=== PATIENT | female | born 1960 | race Caucasian/White ===

== ENCOUNTER → 2016-07-14 | Outpatient (CLI) | payer OTHER ==
[~2016-07-14] MED LIST: CHOL200024 PO; CYAN100028 PO; CYCL-259 PO; DIPH25CA61 PO; INUL1TAB4 PO; LEVO50TA5 PO; LORA2TAB PO; MAGN400T7 PO; MIRT45TA4 PO; PRAZ2CAP2 PO; TRAM50TA2 PO; ZOLP10TA5 PO
== END | disposition home or self-care (01) ==
LOC: STAR 08:34
PROVIDERS: ATTEND Surgery
DX: Z02.9 Encounter for administrative examinations, unspecified (principal)

== ENCOUNTER 2016-07-21 08:46 | Day surgery (SDC) | payer OTHER ==
[~2016-07-21] VITALS: Ht 157.5 cm; Wt 44.0 kg
[2016-07-21] MEDS ORDERED: FENTANYL PF 250 MCG/5ML ONE (13:27)
[2016-07-21] MEDS ORDERED: MIDAZOLAM 1 MG/ML, 2ML ONE ×2 (13:27→15:04)
[2016-07-21] MEDS ORDERED: ONDANSETRON 2MG/ML, 2ML ONE (14:20)
[2016-07-21] MEDS ORDERED: GLYCOPYRROLATE 0.2MG/1ML ONE (14:20)
[2016-07-21] MEDS ORDERED: KETOROLAC 30 MG/1 ML ONE (14:20)
[2016-07-21] MEDS ORDERED: PROPOFOL 10 MG/ML, 20ML ONE (14:20)
[2016-07-21] MEDS ORDERED: DEXAMETHASONE 4 MG/ML, 1ML ONE (14:20)
[2016-07-21] MEDS ORDERED: NEOSTIGMINE 1 MG/ML, 10ML ONE (14:20)
[2016-07-21] MEDS ORDERED: ROCURONIUM 10 MG/ML ONE (14:20)
[2016-07-21] MEDS ORDERED: CEFAZOLIN 1,000 MG ONE (14:20)
[2016-07-21] MEDS ORDERED: BUPIVACAINE/PF-EPI 0.25% 1:200K INFIL ONE (14:41)
[2016-07-21] MEDS: FENTANYL PF 100 MCG/2ML IV PRN ×2 (15:03→15:21)
[2016-07-21] MEDS ORDERED: FENTANYL PF 100 MCG/2ML ONE (15:04)
[2016-07-21] MEDS ORDERED: HYDROmorphone 1 MG/ML, 1ML ONE (15:04)
[2016-07-21] MEDS ORDERED: OXYcodone 5 MG/5 ML ORAL.SOL UDC ONE (15:05)
[2016-07-21] MEDS ORDERED: HYDROmorphone 1 MG/ML, 1ML IV PRN (15:30)
[2016-07-21] MEDS ORDERED: OXYcodone 5 MG/5 ML ORAL.SOL UDC PO PRN (15:30)
[2016-07-21] MEDS ORDERED: LABETALOL 5MG/ML, 20ML IV PRN (15:30)
[2016-07-21] MEDS ORDERED: MEPERIDINE/PF 25MG/0.5ML IVPush PRN (15:30)
[2016-07-21] MEDS ORDERED: ALBUTEROL/IPRATROPIUM 2.5MG/0.5MG, 3 ML NPPB PRN (15:30)
[2016-07-21] MEDS ORDERED: MIDAZOLAM 1 MG/ML, 2ML IV PRN (15:30)
[2016-07-21] MEDS ORDERED: hydrALAzine 20 MG/ML, 1ML IV PRN (15:30)
[2016-07-21] MEDS ORDERED: ONDANSETRON 2MG/ML, 2ML IVPush PRN (15:30)
[2016-07-21] MEDS ORDERED: ACETAMINOPHEN 325 MG TABLET PO PRN (15:30)
[2016-07-21] MEDS ORDERED: PROMETHAZINE 25 MG/ML, 1ML IV PRN (15:30)
[2016-07-21] MEDS ORDERED: LACTATED RINGERS 1,000 ML IV SCH (19:46)
== END 2016-07-21 19:20 | disposition home or self-care (01) ==
LOC: OUT 08:46
PROVIDERS: ATTEND Surgery
DX: K81.1 Chronic cholecystitis (principal); E03.9 Hypothyroidism, unspecified; M41.9 Scoliosis, unspecified; Z98.51 Tubal ligation status; Z98.890 Other specified postprocedural states; G43.909 Migraine, unspecified, not intractable, without status migrainosus; M48.02 Spinal stenosis, cervical region; Z86.19 Personal history of other infectious and parasitic diseases; Z87.891 Personal history of nicotine dependence; Z91.041 Radiographic dye allergy status; Z72.89 Other problems related to lifestyle; Z82.0 Family history of epilepsy and other diseases of the nervous system; Z83.3 Family history of diabetes mellitus; Z82.49 Family history of ischemic heart disease and other diseases of the circulatory system
CPT/HCPCS: 47562; 82962; 88304; J0690; J1100; J1170; J1885; J2250; J2405; J2704; J2710; J3010; J3490; J7120

== ENCOUNTER 2016-09-24 21:42 | Emergency (ER) | payer OTHER ==
[~2016-09-24] VITALS: Ht 157.5 cm; Wt 41.5 kg
[2016-09-24 21:48] VITALS: BP 131/84
== END 2016-09-24 23:52 | disposition left against medical advice (07) ==
LOC: ED 23:46
DX: Z53.21 Procedure and treatment not carried out due to patient leaving prior to being seen by health care provider (principal)
CPT/HCPCS: 93005

== ENCOUNTER → 2017-02-26 | Outpatient (CLI) | payer MEDICARE | END | disposition home or self-care (01) | LOC: LAB 16:21 | PROVIDERS: ATTEND Family Medicine | DX: L30.9 Dermatitis, unspecified (principal) | CPT/HCPCS: 36415 ==

== ENCOUNTER → 2017-06-10 | Outpatient (CLI) | payer MEDICARE ==
[~2017-06-10] MED LIST changes: +REGADENOSON 0.4 MG/5 ML SYRINGE ONE
== END | disposition home or self-care (01) ==
LOC: CFH 07:10
PROVIDERS: ATTEND Internal Medicine Cardiovascular Disease
DX: I25.10 Atherosclerotic heart disease of native coronary artery without angina pectoris (principal)
CPT/HCPCS: 78452; 93017; 93306; A9502; J2785

== ENCOUNTER 2017-12-17 17:19 | Emergency (ER) | payer MEDICARE ==
[~2017-12-17] VITALS: Ht 157.5 cm; Wt 43.0 kg
[~2017-12-17 17:19] MED LIST changes: -MIRT45TA4 PO; +MIRT45TA61 PO; -REGADENOSON 0.4 MG/5 ML SYRINGE ONE
[2017-12-17 18:22] LABS: BASOPHILS # (AUTO) 0.03 x10^3/uL (0-0.1); BASOPHILS % (AUTO) 1 % (0-1); EOSINOPHILS # (AUTO) 0.11 x10^3/uL (0-0.4); EOSINOPHILS % (AUTO) 2 % (1-7); LYMPHOCYTES # (AUTO) 1.88 x10^3/uL (1-3.4); LYMPHOCYTES % (AUTO) 31 % (22-44); MD NO; MEAN CORPUSCULAR HEMOGLOBIN 30.4 pg (27.0-34.8); MEAN CORPUSCULAR HGB CONC 33.9 g/dL (32.4-35.8); MEAN CORPUSCULAR VOLUME 89.5 fL (80-100); MEAN PLATELET VOLUME 7.6 fL (7.4-10.4); MONOCYTES # (AUTO) 0.43 x10^3/uL (0.2-0.8); MONOCYTES % (AUTO) 7 % (2-9); NEUTROPHILS # (AUTO) 3.67 x10^3/uL (1.8-6.8); NEUTROPHILS % (AUTO) 60 % (42-75); PLATELET COUNT 341 x10^3/uL (130-400); RED BLOOD COUNT 4.43 x10^6/uL (3.82-5.3); RED CELL DISTRIBUTION WIDTH 11.9 % (9.6-15.2)
[2017-12-17 19:31] LABS: ANION GAP 8 mmol/L (5-15); CALCIUM 8.6 mg/dL (8.5-10.1); CHLORIDE 105 mmol/L (98-107); CREATININE 0.89 mg/dL (0.55-1.02)
[2017-12-17 19:40] LABS: ALANINE AMINOTRANSFERASE 21 U/L (12-78); ALKALINE PHOSPHATASE 177 U/L (45-117); BILIRUBIN,TOTAL 0.5 mg/dL (0.2-1.0); TOTAL PROTEIN 7.3 g/dL (6.4-8.2)
[2017-12-17 20:23] LABS: CULTURE INDICATED? YES; MICROSCOPIC INDICATED
[2017-12-17] MEDS ORDERED: ONDANSETRON 2MG/ML, 2ML ONE (20:28)
[2017-12-17] MEDS ORDERED: HYDROmorphone 2 MG/ML, 1ML ONE (20:29)
[2017-12-17] MEDS ORDERED: HYDROmorphone 2 MG/ML, 1ML IVPush PRN (20:30)
[2017-12-17] MEDS ORDERED: ONDANSETRON 2MG/ML, 2ML IVPush ONE (20:30)
[2017-12-17] MEDS ORDERED: DIPHENHYDRAMINE 50 MG/ML, 1ML IVPush ONE (20:30)
[2017-12-17] MEDS ORDERED: DIPHENHYDRAMINE 50 MG/ML, 1ML ONE (20:33)
[2017-12-17 22:49] VITALS: BP 117/75
== END 2017-12-17 22:52 | disposition home or self-care (01) ==
LOC: ED 22:46
DX: K59.00 Constipation, unspecified (principal); R10.84 Generalized abdominal pain; F32.9 Major depressive disorder, single episode, unspecified; F41.1 Generalized anxiety disorder; Z90.49 Acquired absence of other specified parts of digestive tract
CPT/HCPCS: 36415; 74021; 74176; 80053; 81001; 83690; 85025; 87086; 96374; 96375; 99285; J1170; J1200; J2405

== ENCOUNTER 2019-01-05 16:58 | Emergency (ER) | payer MEDICARE ==
[~2019-01-05] VITALS: Ht 157.5 cm; Wt 56.0 kg
[~2019-01-05 16:58] MED LIST changes: +LORA0.5T PO; -MAGN400T7 PO; +MAGN400T9 PO; +MIRT30TA4 PO
[2019-01-05] MEDS ORDERED: KETOROLAC 30 MG/1 ML IM ONE (18:00)
[2019-01-05] MEDS ORDERED: DIAZEPAM 5 MG TABLET PO ONE (18:00)
[2019-01-05] MEDS ORDERED: KETOROLAC 30 MG/1 ML ONE (18:05)
[2019-01-05] MEDS ORDERED: DIAZEPAM 5 MG TABLET ONE (18:05)
--- NOTE | 2019-01-05 18:28 | NUR ---
first contact with pt. pt c/o lumbar spine pain since falling off chair last night. Pt report Hx of spinal stenosis. pt's aox4. resps even and unlabored.
--- NOTE | 2019-01-05 18:28 | NUR ---
pt medicated per emar. pt tolerated well.
[2019-01-05 19:13] VITALS: BP 118/79
== END 2019-01-05 19:15 | disposition home or self-care (01) ==
LOC: ED 19:05
DX: S39.012A Strain of muscle, fascia and tendon of lower back, initial encounter (principal); F41.1 Generalized anxiety disorder; F43.10 Post-traumatic stress disorder, unspecified; Z90.49 Acquired absence of other specified parts of digestive tract; W01.0XXA Fall on same level from slipping, tripping and stumbling without subsequent striking against object, initial encounter; Y93.89 Activity, other specified; Y92.89 Other specified places as the place of occurrence of the external cause; Y99.8 Other external cause status
CPT/HCPCS: 72072; 72110; 96372; 99283; J1885

== ENCOUNTER 2019-02-03 08:47 | Outpatient (CLI) | payer MEDICARE | END 2019-02-03 23:59 | disposition home or self-care (01) | LOC: RAD 08:47 | PROVIDERS: ATTEND Family Medicine | DX: M17.0 Bilateral primary osteoarthritis of knee (principal); M19.072 Primary osteoarthritis, left ankle and foot; M19.071 Primary osteoarthritis, right ankle and foot; R92.8 Other abnormal and inconclusive findings on diagnostic imaging of breast; R74.8 Abnormal levels of other serum enzymes | CPT/HCPCS: 78306; A9503 ==

== ENCOUNTER 2020-03-08 07:05 | Outpatient (CLI) | payer MEDICARE | END 2020-03-08 23:59 | disposition home or self-care (01) | LOC: RAD 07:05 | PROVIDERS: ATTEND Internal Medicine Gastroenterology | DX: K21.9 Gastro-esophageal reflux disease without esophagitis (principal); R11.2 Nausea with vomiting, unspecified; K31.9 Disease of stomach and duodenum, unspecified; R14.0 Abdominal distension (gaseous); R74.8 Abnormal levels of other serum enzymes | CPT/HCPCS: 78227; A9537 ==